=== PATIENT | male | born 1970 | race Caucasian/White ===

== ENCOUNTER 2020-08-01 13:18 | Outpatient (REF) | payer BC, SELFPAY ==
--- NOTE | 2020-08-01 16:00 | MHC.AU.P13 ---
Adult Audiological Evaluation Date of Visit: 08/01/20 Reason for Appointment: Audiological evaluation due to concern for decreased hearing. Patient notes that his feels he doesn't hear well. He denies any significant concerns for his hearing. 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 Does patient feel they have a hearing loss?: Unsure Has hearing been tested previously?: Yes Previous Hearing Test Results: Has had hearing screenings are work but does not know the results. 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 Medical History: Medical History: High Blood Pressure Medication List: Lisinopril 12.5 mg x2, Pravastatin 10 mg, Cetirizine 10 mg, Escitalopram 10 mg, One a day vitamin, vitamin C 500 mg Otoscopy: Right Ear: Unremarkable Left Ear: Unremarkable Hearing Evaluation: Transducer(s) Used: Insert Earphones, Bone Conduction Method: Conventional Audiometry Stimuli Used: Pure Tones Right Ear: Description of Hearing: Normal hearing from 250-2000 Hz, steeply sloping to a mild sensorineural hearing loss at 3000 Hz and a moderately severe sensorineural hearing loss at 4000 Hz, then rising to normal hearing at 3985-3114 Hz. Left Ear: Description of Hearing: Normal hearing from 250-8000 Hz. Speech Recognition Threshold (SRT): Method Used: Monitored Live Voice Stimuli Used: Spondee Words Right Ear: 10 dBHL Left Ear: 5 dBHL Word Discrimination: Method: Recorded Lists Word Lists Used: NU-6 Right Ear: 100% at 50 dBHL Left Ear: 100% at 50 dBHL Interpretation of Results: Notch at 4000 Hz in the right ear may be related to history of noise exposure. Recommendations: Audiological re-evaluation in one year. Amplification is not warranted at this time. Referral to Ear, Nose, and Throat is recommended due to asymmetric hearing, right worse than left. Diagnosis: Primary Diagnosis: H90.41 SNHL Unilateral Right Ear, W/Unrestricted Contralateral Hearing Services Performed: Services Performed: Comprehensive Audiological Evaluation (CPT 13295) Signature: Provider: Tushar Lal, [facility]
--- NOTE | 2020-08-05 09:53 | MHC.AU.P13 ---
Adult Audiological Evaluation Date of Visit: 08/01/20 Reason for Appointment: Audiological evaluation due to concern for decreased hearing. Patient notes that his feels he doesn't hear well. He denies any significant concerns for his hearing. 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 Does patient feel they have a hearing loss?: Unsure Has hearing been tested previously?: Yes Previous Hearing Test Results: Has had hearing screenings are work but does not know the results. 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 Medical History: Medical History: High Blood Pressure Medication List: Lisinopril 12.5 mg x2, Pravastatin 10 mg, Cetirizine 10 mg, Escitalopram 10 mg, One a day vitamin, vitamin C 500 mg Otoscopy: Right Ear: Unremarkable Left Ear: Unremarkable Hearing Evaluation: Transducer(s) Used: Insert Earphones, Bone Conduction Method: Conventional Audiometry Stimuli Used: Pure Tones Right Ear: Description of Hearing: Normal hearing from 250-2000 Hz, steeply sloping to a mild sensorineural hearing loss at 3000 Hz and a moderately severe sensorineural hearing loss at 4000 Hz, then rising to normal hearing at 0589-5853 Hz. Left Ear: Description of Hearing: Normal hearing from 250-8000 Hz. Speech Recognition Threshold (SRT): Method Used: Monitored Live Voice Stimuli Used: Spondee Words Right Ear: 10 dBHL Left Ear: 5 dBHL Word Discrimination: Method: Recorded Lists Word Lists Used: NU-6 Right Ear: 100% at 50 dBHL Left Ear: 100% at 50 dBHL Interpretation of Results: Notch at 4000 Hz in the right ear may be related to history of noise exposure. Recommendations: Audiological re-evaluation in one year. Amplification is not warranted at this time. Referral to Ear, Nose, and Throat is recommended due to asymmetric hearing, right worse than left. Diagnosis: Primary Diagnosis: H90.41 SNHL Unilateral Right Ear, W/Unrestricted Contralateral Hearing Services Performed: Services Performed: Comprehensive Audiological Evaluation (CPT 32257) Signature: Provider: Tushar Lal, [facility]
== END 2020-08-01 13:19 | disposition home or self-care (01) ==
LOC: HO.SH 13:18
PROVIDERS: Visit Provider Internal Medicine
DX: H90.41 Sensorineural hearing loss, unilateral, right ear, with unrestricted hearing on the contralateral side (principal)
CPT/HCPCS: 92557

== ENCOUNTER → 2020-10-16 13:41 | Outpatient (REF) | payer BC, SELFPAY | LOC: HO.SL 13:41 | PROVIDERS: PCP Internal Medicine; Visit Provider Internal Medicine | DX: E66.01 Morbid (severe) obesity due to excess calories (principal); Z68.41 Body mass index [BMI] 40.0-44.9, adult | CPT/HCPCS: 95806 ==

== ENCOUNTER 2021-01-03 07:03 | Outpatient (REF) | payer BC, SELFPAY ==
[2021-01-03 07:46] LABS: MANUAL DIFF FLAG NO
[2021-01-03 07:52] LABS: Basophils Percent Auto 0.6 % (0-2); Eosinophils Absolute Auto 0.1 X10*3/uL (0.0-0.4); Eosinophils Percent Auto 2.6 % (0-4); Hematocrit 43.6 % (42-52); Hemoglobin 14.3 g/dl (14.0-18.0); Imm Gran Abs Auto 0.01 X10*3/uL (0.00-0.03); Imm Gran Pct Auto 0.2 % (0.0-0.4); Lymphocytes Absolute Auto 1.6 X10*3/uL (1.2-4.9); Lymphocytes Percent Auto 32.5 % (20-40); Mean Corpuscular HGB Conc 32.8 g/dl (31.0-36.0); Mean Corpuscular Hemoglobin 30.4 pg (27.0-33.0); Mean Corpuscular Volume 92.6 fL (80-98); Mean Platelet Volume 10.3 fL (9.4-12.4); Monocytes Absolute Auto 0.4 X10*3/uL (0.1-1.2); Monocytes Percent Auto 7.5 % (2-11); Neutrophils Absolute Auto 2.8 X10*3/uL (2.0-8.3); Neutrophils Percent Auto 56.6 % (45-73); Platelet Count 242 X10*3/uL (160-400); Red Blood Count 4.71 X10*6/uL (4.60-5.80); Red Cell Distribution Width 13.2 % (11.0-16.0)
[2021-01-03 08:10] LABS: Alanine Aminotransferase 23 U/L (0-40); Alkaline Phosphatase 63 U/L (39-117); Anion Gap 13 (12-20); Aspartate Amino Transferase 25 U/L (5-37); Bilirubin Total 0.7 mg/dL (0.0-1.0); Blood Urea Nitrogen 10 mg/dL (9-16); Calcium 9.3 mg/dL (8.4-10.2); Carbon Dioxide 27 mmol/L (22-29); Chloride 103 mmol/L (96-108); Cholesterol 164 mg/dL; Estimated Glomerular Filt Rate > 60; Glucose Random 109 mg/dL (60-115); HDL Cholesterol 47 mg/dL; LDL Cholesterol Calculated 99 mg/dl; Sodium 139 mmol/L (135-145); Total Protein 6.9 g/dL (6.5-8.0); Triglycerides 91 mg/dL; Uric Acid 8.2 mg/dL (3.4-7.0)
[2021-01-03 08:15] LABS: Estimated Average Glucose 111 mg/dL; Hemoglobin A1c % 5.5 %
[2021-01-03 08:31] LABS: Free T4 (Free Thyroxine) 0.89 ng/dL (0.71-1.85); Prostate Specific Antigen Scr 1.02 ng/mL (<0.05-4.0); Thyroid Stimulating Hormone 1.08 uIU/mL (0.32-4.0)
[2021-01-05 10:30] LABS: Folate 14.3 ng/mL (> or = 4.0); Vitamin B12 439 pg/mL (200-900)
== END 2021-01-03 07:04 | disposition home or self-care (01) ==
LOC: HO.LAB 07:03
PROVIDERS: PCP Internal Medicine; Visit Provider Internal Medicine
DX: Z12.5 Encounter for screening for malignant neoplasm of prostate (principal); E78.00 Pure hypercholesterolemia, unspecified; I10 Essential (primary) hypertension; M10.9 Gout, unspecified; R73.02 Impaired glucose tolerance (oral)
CPT/HCPCS: 36415; 80053; 80061; 82607; 82746; 83036; 84153; 84439; 84443; 84550; 85025

== ENCOUNTER 2021-03-21 07:12 | Outpatient (REF) | payer BC, SELFPAY ==
[2021-03-21 08:16] LABS: Anion Gap 11 (12-20); Blood Urea Nitrogen 9 mg/dL (9-16); Calcium 9.1 mg/dL (8.4-10.2); Carbon Dioxide 28 mmol/L (22-29); Chloride 105 mmol/L (96-108); Estimated Glomerular Filt Rate > 60; Glucose Random 103 mg/dL (60-115); Potassium 4.3 mmol/L (3.3-5.1); Sodium 140 mmol/L (135-145); Uric Acid 5.9 mg/dL (3.4-7.0)
== END 2021-03-21 07:13 | disposition home or self-care (01) ==
LOC: HO.LAB 07:12
PROVIDERS: PCP Internal Medicine; Visit Provider Internal Medicine
DX: M10.9 Gout, unspecified (principal)
CPT/HCPCS: 36415; 80048; 84550

== ENCOUNTER 2022-02-20 07:16 | Outpatient (REF) | payer BC, SELFPAY ==
[2022-02-20 07:51] LABS: Hematocrit 43.4 % (42.0-52.0); Hemoglobin 14.6 g/dl (14.0-18.0); Mean Corpuscular HGB Conc 33.6 g/dl (31.0-36.0); Mean Corpuscular Hemoglobin 30.9 pg (27.0-33.0); Mean Corpuscular Volume 91.9 fL (80.0-98.0); Mean Platelet Volume 10.3 fL (9.4-12.4); Platelet Count 203 X10*3/uL (160-400); Red Blood Count 4.72 X10*6/uL (4.60-5.80); White Blood Count 4.2 X10*3/uL (4.8-10.8)
[2022-02-20 08:02] LABS: Estimated Average Glucose 105 mg/dL; Hemoglobin A1c % 5.3 %
[2022-02-20 08:39] LABS: Anion Gap 13 (12-20); Blood Urea Nitrogen 14 mg/dL (9-16); Calcium 8.9 mg/dL (8.4-10.2); Carbon Dioxide 25 mmol/L (22-29); Chloride 106 mmol/L (96-108); Estimated Glomerular Filt Rate > 60; Glucose Fasting 108 mg/dL (60-99); Potassium 4.1 mmol/L (3.3-5.1); Sodium 140 mmol/L (135-145)
== END 2022-02-20 07:17 | disposition home or self-care (01) ==
LOC: HO.LAB 07:16
PROVIDERS: PCP Internal Medicine; Referring Provider Internal Medicine; Visit Provider Nurse Practitioner Family
DX: E11.9 Type 2 diabetes mellitus without complications (principal); I10 Essential (primary) hypertension; Z13.1 Encounter for screening for diabetes mellitus
CPT/HCPCS: 36415; 80048; 83036; 85027

== ENCOUNTER 2022-03-22 15:51 | Outpatient (REF) | payer OTHER, BC, SELFPAY ==
--- NOTE | ~2022-03-22 | MR_ITS ---
EXAMINATION: MR KNEE WITHOUT CONTRAST, LEFT CLINICAL INFORMATION: Left knee pain following a hyperextension injury. Posterior burning pain. COMPARISON: None TECHNIQUE: MRI of the knee without contrast was performed using routine sequences on a high-field scanner. FINDINGS: MENISCI: Medial Meniscus: Intact. Lateral Meniscus: Attenuation and irregularity of the posterior horn and root, consistent with irregular tearing. LIGAMENTS: Cruciate: Intact. Collateral: Intact. EXTENSOR MECHANISM: Intact. ARTICULAR CARTILAGE/BONE: Patellofemoral Compartment: Mild patellar articular cartilage signal heterogeneity with small marginal osteophytes. Medial Compartment: Intact articular cartilage. Lateral Compartment: Intact articular cartilage. JOINT FLUID AND BURSAE: Small joint effusion with mild synovitis. MR/MR knee LT wo con IMPRESSION: 1. Irregular tearing of the lateral meniscus posterior horn and root. 2. Minimal patellofemoral arthrosis. 3. Small joint effusion with mild synovitis.
== END 2022-03-22 15:52 | disposition home or self-care (01) ==
LOC: HO.MRI 15:51
PROVIDERS: Visit Provider Internal Medicine
DX: M25.562 Pain in left knee (principal)
CPT/HCPCS: 73721

== ENCOUNTER 2022-03-30 | Outpatient (REF) | payer OTHER, BC, SELFPAY ==
--- NOTE | ~2022-03-30 | XR_ITS ---
EXAMINATION: XR STANDING AP KNEES XR KNEE, LEFT CLINICAL INFORMATION: Knee pain. Hyperextension injury. COMPARISON: MRI left knee 03/22/2022. TECHNIQUE: Standing AP view of both knees is performed along with lateral and axial patella views of the left knee. FINDINGS: Right: No fracture or destructive process. Normal bony mineralization. No joint narrowing or erosive change or chondrocalcinosis. Left: No fracture, dislocation, destructive process. No focal joint narrowing or erosive change or chondrocalcinosis. Normal bony mineralization. No lateralization patella. Small suprapatellar effusion. Hoffa's fat pad appears normal. XR/XR knee standing BI IMPRESSION: Right: -No joint narrowing or erosive change. Left: -No joint narrowing or erosive change. -Small suprapatellar effusion.
--- NOTE | ~2022-03-30 | XR_ITS ---
EXAMINATION: XR STANDING AP KNEES XR KNEE, LEFT CLINICAL INFORMATION: Knee pain. Hyperextension injury. COMPARISON: MRI left knee 03/22/2022. TECHNIQUE: Standing AP view of both knees is performed along with lateral and axial patella views of the left knee. FINDINGS: Right: No fracture or destructive process. Normal bony mineralization. No joint narrowing or erosive change or chondrocalcinosis. Left: No fracture, dislocation, destructive process. No focal joint narrowing or erosive change or chondrocalcinosis. Normal bony mineralization. No lateralization patella. Small suprapatellar effusion. Hoffa's fat pad appears normal. XR/XR knee LT 2V IMPRESSION: Right: -No joint narrowing or erosive change. Left: -No joint narrowing or erosive change. -Small suprapatellar effusion.
== END 2022-03-30 00:01 ==
LOC: HO.HOSX
PROVIDERS: Visit Provider Physician Assistant
DX: M25.562 Pain in left knee (principal); M23.92 Unspecified internal derangement of left knee
CPT/HCPCS: 73560; 73565; 99202

== ENCOUNTER → 2022-05-11 09:24 | Outpatient (BNVA) | payer OTHER, BC, SELFPAY | PROVIDERS: PCP Internal Medicine; Visit Provider Physician Assistant | DX: M23.92 Unspecified internal derangement of left knee (principal) | CPT/HCPCS: 99212 ==

== ENCOUNTER 2022-05-27 13:00 | Outpatient (RCR) | payer OTHER, BC, SELFPAY ==
[2022-04-15 09:06] VITALS: BP 144/85; PULSE 82
--- NOTE | 2022-04-15 10:24 | MHC.PT.EP ---
[facility] [place] [facility] [place] [facility] [place] Office [address] [phone] F: [phone] F: [phone] F: [phone] F: [phone] Physical Therapy Plan of Care Date of Evaluation: Date of Surgery: NA Diagnosis: Unspecified derangement of L knee Assessment: Zak is a 51 year old male who is referred to PT for unspecified internal derangement of L knee . He injured his knee at work about 6 weeks back. He slipped and fell while getting off his truck and landed on his knee with it flexed. He went to urgent care where he was given brace. He then followed up with his PCP and ortho. On PT examination he presented with 6/10 pain in L knee with sit to stand, stairs, getting in and out of car and knee bending, decreased L knee ROM, TTP over posterior joint line and distal 1/3rd of medial hamstring, decreased B LE strength, altered posture, and gait. Due to these impairments and he has difficulty with above mentioned activities. He would benefit from skilled PT to address the aforementioned impairments and improve tolerance to functional activities. Frequency and Duration: The patient will be seen 2/week for 5 weeks Short Term Goals: 1. Pt will have 50% decrease in pain which will enable him to tolerate sitting for 30 minutes in 2 weeks 2. 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 Pt will demonstrate an increase in muscle strength by 1 grade which will enable to perform sit to stand and negotiate stairs without pain in 5 weeks. 2. Pt will be independent with HEP for symptom management and maintenance following d/c in 5 weeks. Treatment Plan: Modalities to reduce pain, spasms and effusion. Manual therapy to restore motion and function. Therapeutic exercise to improve strength and flexibility. Neuromuscular re-education for posture and balance. Therapeutic activities to return to functional activities of daily living. Electronically signed by: Nilam Hopper PT DPT Please sign and return to therapist. Thank you for your referral.
--- NOTE | 2022-06-22 15:53 | MHC.PT.DC ---
[facility] [place] Office [place] Office [place] Office [address] [phone] F: [phone] F: [phone] F: [phone] F: [phone] Physical Therapy Discharge Report Diagnosis: Unspecified derangement of L knee Date of Surgery: NA Date of Evaluation: 04/15/22 Date of Discharge: 06/22/22 Treatments to Date: 9 Cancellations to Date: 0 No Shows to Date: Discharge Status: Achieved Goals Improved Function Independent with HEP Discharge Summary: Zak completed 9 PT visits. In these visits he made significant improvements and achieved all goals set for him. He has returned to work as well. He is therefore being d/c from PT. He was in agreement with the plan. Electronically signed by: Nilam Hopper, PT DPT Please sign and return to therapist. Thank you for your referral.
== END 2022-06-22 15:54 | disposition home or self-care (01) ==
LOC: HO.PT 13:00
PROVIDERS: PCP Internal Medicine; Visit Provider Physician Assistant
DX: M23.92 Unspecified internal derangement of left knee (principal)
CPT/HCPCS: 97035; 97110; 97140; 97161; 97530

== ENCOUNTER 2023-04-18 14:01 | Outpatient (AMB) | payer BC, SELFPAY ==
[2023-04-18 14:09] VITALS: BP 176/90; PULSE 80; O2SAT 96; BMI 43.3
--- NOTE | 2023-04-18 14:09 | MHC.PC.OV ---
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: No Accompanied by: Self / Same As Patient Allergies No Known Allergies [No Known Allergies*] Allergy (Verified 04/18/23 14:29) Medication List - Last Reconciled 04/18/23 by ALAN Tanner allopurinol 100 mg PO DAILY 30 days ascorbic acid (vitamin C) mg PO aspirin (Adult Aspirin Regimen) 81 mg PO DAILY cetirizine 10 mg PO DAILY colchicine (gout) 0.6 mg PO DAILY [CPAP 6-16 cm humidified air As directed] escitalopram oxalate 10 mg PO DAILY hydrochlorothiazide 25 mg PO DAILY 30 days lisinopril 40 mg PO DAILY 90 days [id number]-ginkgo 400-600-120 mcg-mcg-mg (One Daily For Men 50 Plus Adv) tabs PO pravastatin 10 mg PO DAILY Tobacco use date assessed: 04/18/23 Dental Screening Dental Screen Date: 04/18/23 Did you have a dental visit in the last 12 months?: Yes Did you have a dental problem in the last 6 months where you did not have access to dental care?: No Was dental information given to patient?: Patient has dentist HPI HPI Comments History of Present Illness Details 52-year-old male past medical history significant for hypertension, hypercholesteremia, impaired glucose tolerance obesity, MALDONADO and left knee pain. Patient last seen in May patient presents today for follow-up visit. Patient's initial blood pressure on arrival elevated 176/90, blood pressure, patient reports home blood pressure readings 132/70's.Patient Denies headaches, blurred vision. Patient reports under alot of stress. Blood pressure repeated during this appointment after patient was sitting for few minutes 144/82. Patient reminded to get previously ordered fasting lab work completed. [facility] Medical History Allergic rhinitis Anxiety Hypercholesterolemia Hypertension Impaired glucose tolerance Obesity Surgical History History of colonoscopy Family History Father Prostate cancer Heart attack Mother No problems noted. 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 1. Little interest or pleasure in doing things: not at all 2. Feeling down, depressed, or hopeless: not at all 3. Trouble falling or staying asleep, or sleeping too much: not at all 4. Feeling tired or having little energy: not at all 5. Poor appetite or overeating: not at all 6. Feeling bad about yourself - or that you are a failure or have let yourself or your family down: not at all 7. Trouble concentrating on things, such as reading the newspaper or watching television: not at all 8. Moving or speaking so slowly that other people could have noticed. Or the opposite - being so fidgety or restless that you have been moving around a lot more than usual: not at all 9. Thoughts that you would be better off or of hurting yourself in some way: not at all Total score: 0 Depression Screening Interpretation: Negative Depression Screening Done: Yes Source: Developed by Drs. Kelvin Telles, Apple Hadley, Lawson Smith and colleagues, with an educational penelope from [employer]. Thrive Questionnaire Date Thrive assessed: 04/18/23 I am a: Patient What is your living situation today?: I have a steady place to live Within the past 12 months, did the food you bought not last and you didn't have the money to get more?: Never true Within the past 12 months, did you worry whether your food would run out before you got money to buy more?: Never true Do you have trouble paying for medicines?: No Do you have trouble getting transportation to medical appointments?: No Do you have trouble paying your heating and electricity bill?: No Do you have trouble taking care of your child, family member or friend?: No Do you have trouble with day-to-day activities such as bathing, preparing meals, shopping, managing finances, etc.?: No Are you currently unemployed and looking for a job?: No Are you interested in more education?: No Please select the resources that you would like help with: None Currently or been in a relationship where the following occur: no concerns reported AUDIT C Alcohol Use Questionnaire (AUDIT-C) 1. How often do you have a drink containing alcohol?: Never Total Score: 0 JORDANA-7 AMB Questionnaire JORDANA-7 Date JORDANA - 7 assessed: 04/18/23 Feeling nervous, anxious, or on edge: 0 = Not at all Not being able to stop or control worryin = Not at all Worrying too much about different things: 0 = Not at all Trouble relaxin = Not at all Being so restless that it is hard to sit still: 0 = Not at all Becoming easily annoyed or irritable: 0 = Not at all Feeling afraid as if something awful might happen: 0 = Not at all Total JORDANA-7 score (0-4 normal; 5-9 mild; 10-14 moderate; 15-21 severe): 0 Source: Developed by Drs. Kelvin Telles, Apple Hadley, Lawson Smith and colleagues, with an educational penelope from [employer]. JORDANA-7 Assessment Billing JORDANA-7 Assessment Tool: JORDANA-7 Assessment 67585 Review of Systems Const Denies chills, Denies fatigue, Denies fever(s) and Denies poor appetite Eyes Denies no additional complaints ENT Reports Normal hearing present Card Denies chest pain, Denies syncope, Denies rapid heart rate and Denies dyspnea Resp Denies cough and Denies dyspnea GI Denies change in stool character, Denies constipation, Denies diarrhea, Denies nausea and Denies vomiting Denies dysuria, Denies urinary frequency and Denies urinary urgency Neuro Reports Normal hearing present, Denies confusion and Denies syncope Psych Denies confusion Endo Denies fatigue Physical exam (Primary Care) Vital Signs: Last Vital Signs Pulse 80 04/18/23 14:09 BP 176/90 H 04/18/23 14:09 Pulse Ox 96 04/18/23 14:09 Oxygen Delivery Method Room Air 04/18/23 14:09 BMI result Body Mass Index 43.3 Tobacco/Smoking Status: Tobacco use Status Tobacco use date assessed 04/18/23 04/18/23 14:15 Patient Tobacco Use Status Never used Tobacco 04/18/23 14:15 e-Cigarette/Vaping Use Never Used 04/18/23 14:15 PHQ-9: PHQ-9 Score PHQ-9: Total score 0 04/18/23 14:27 Depression Screening Interpretation: Negative Thrive Assessment: Date of Thrive Assessment Date Thrive assessed 04/18/23 04/18/23 14:15 Currently or been in a relationship where the following occur: no concerns reported Const General: No confusion Orientation/consciousness: No confusion HENMT Head: Yes normocephalic and Yes atraumatic Eyes Conjunctivae: conjunctivae normal Chest Chest palpation & inspection: normal inspection of the chest Resp Effort & Inspection: normal respiratory effort Auscultation: clear to auscultation bilaterally, no crackles, no rhonchi and no wheezes Cardio Rate: regular rate Rhythm: regular rhythm Heart sounds: S1 normal heart sound present and S2 normal heart sound present GI Inspection: Yes normal to inspection Neuro General: No confusion Cranial nerves: Yes Normal hearing present Extrem General: No edema Office Procedures Flu Questionnaire Does the patient have a severe egg allergy?: No Immunizations flu vacc [id number] 6mos up(PF) 60 mcg(15 mcgx4)/0.5 mL IM syringe Performing Provider: ALAN Tanner [facility] Documented (not given) by: ISABELLE Hernández on 04/18/23 14:17 Reason Not Given: Patient Refused Assessment and Plan Assessment & Plan (1) Impaired glucose tolerance: Code(s): R73.02 - Impaired glucose tolerance (oral) Plan: Fasting glucose ordered. (2) Hypercholesterolemia: Code(s): E78.00 - Pure hypercholesterolemia, unspecified Plan: Patient reminded to get previously ordered fasting lipid panel completed. Continue on pravastatin 10 mg daily. Avoid fried foods, chicken skin, eggs, butter,margarine, pastries and?? red meat. (3) Hypertension: Code(s): I10 - Essential (primary) hypertension Qualifiers: Hypertension type: essential hypertension Qualified Code(s): I10 - Essential (primary) hypertension Plan: Continue on lisinopril 40 mg daily and hydrochlorothiazide 25 mg daily. Follow low-salt diet and exercise. Patient advised to continue checking blood pressures periodically at home after sitting down for 3-5 minutes and keep a log patient advised to call office with any elevated blood pressure readings. Blood pressure goal less than 140/90. (4) Obstructive sleep apnea: Code(s): G47.33 - Obstructive sleep apnea (adult) (pediatric) Plan: Discussed about using the CPAP more than 4 hours a night and benefits from this. Plan Follow-up in 3 months. Orders: Orders Influenza [id number] Immunization 04/18/23 Z23 - Encounter for immunization Coding Level of Care Code Est Pt Level 4 (64628) Diagnoses Impaired glucose tolerance R73.02 Hypercholesterolemia E78.00 Essential hypertension I10 Hypertension type: essential hypertension Obstructive sleep apnea G47.33 Additional Codes JORDANA-7 Assessment Billing - JORDANA-7 Assessment Tool: JORDANA-7 Assessment 37403 ([id number]) PHQ-9 - 52635 - PHQ-9 Billing: ([id number])
== END 2023-04-18 14:35 | disposition home or self-care (01) ==
PROVIDERS: PCP Internal Medicine; Visit Provider Nurse Practitioner Family
DX: R73.02 Impaired glucose tolerance (oral) (principal); E78.00 Pure hypercholesterolemia, unspecified; I10 Essential (primary) hypertension; G47.33 Obstructive sleep apnea (adult) (pediatric)
CPT/HCPCS: 99214

== ENCOUNTER 2023-07-23 07:19 | Outpatient (REF) | payer BC, SELFPAY ==
[2023-07-23 07:38] LABS: MANUAL DIFF FLAG NO
[2023-07-23 07:55] LABS: Basophils Percent Auto 0.6 % (0-2); Eosinophils Absolute Auto 0.2 X10*3/uL (0.0-0.4); Eosinophils Percent Auto 3.5 % (0-4); Hematocrit 43.7 % (42.0-52.0); Hemoglobin 15.4 g/dl (14.0-18.0); Imm Gran Abs Auto 0.01 X10*3/uL (0.00-0.03); Imm Gran Pct Auto 0.2 % (0.0-0.4); Lymphocytes Absolute Auto 1.6 X10*3/uL (1.2-4.9); Lymphocytes Percent Auto 34.8 % (20-40); Mean Corpuscular HGB Conc 35.2 g/dl (31.0-36.0); Mean Corpuscular Volume 90.9 fL (80.0-98.0); Mean Platelet Volume 10.4 fL (9.4-12.4); Monocytes Absolute Auto 0.5 X10*3/uL (0.1-1.2); Monocytes Percent Auto 10.2 % (2-11); Neutrophils Absolute Auto 2.4 x10*3/uL (2.0-8.3); Neutrophils Percent Auto 50.7 % (45-73); Platelet Count 252 X10*3/uL (160-400); Red Blood Count 4.81 X10*6/uL (4.60-5.80); White Blood Count 4.6 X10*3/uL (4.8-10.8)
[2023-07-23 08:09] LABS: Estimated Average Glucose 108 mg/dL; Hemoglobin A1c % 5.4 % (<6.0)
[2023-07-23 09:31] LABS: Alanine Aminotransferase 47 U/L (0-40); Albumin Level 4.1 g/dL (3.5-5.0); Alkaline Phosphatase 63 U/L (39-117); Anion Gap 12 (12-20); Aspartate Amino Transferase 37 U/L (5-37); Bilirubin Total 0.6 mg/dL (0.0-1.0); Blood Urea Nitrogen 14 mg/dL (9-16); Calcium 9.4 mg/dL (8.4-10.2); Carbon Dioxide 27 mmol/L (22-29); Chloride 104 mmol/L (96-108); Cholesterol 142 mg/dL (<200); Estimated Glomerular Filt Rate > 60; Glucose Random 99 mg/dL (60-115); HDL Cholesterol 45 mg/dL (>40); LDL Cholesterol Calculated 86 mg/dL (<100); Sodium 139 mmol/L (135-145); Total Protein 7.2 g/dL (6.5-8.0); Triglycerides 56 mg/dL (<150); Uric Acid 6.7 mg/dL (3.4-7.0)
[2023-07-23 09:48] LABS: Free T4 (Free Thyroxine) 0.94 ng/dL (0.71-1.85); Thyroid Stimulating Hormone 1.63 uIU/mL (0.32-4.0)
[2023-07-23 10:01] LABS: Folate 10.5 ng/mL (> or = 4.0); Prostate Specific Antigen Scr 2.12 ng/mL (<0.05-4.0)
[2023-07-23 11:01] LABS: Vitamin B12 853 pg/mL (200-900)
== END 2023-07-23 07:20 | disposition home or self-care (01) ==
LOC: HO.LAB 07:19
PROVIDERS: PCP Internal Medicine; Visit Provider Internal Medicine
DX: Z12.5 Encounter for screening for malignant neoplasm of prostate (principal); E78.00 Pure hypercholesterolemia, unspecified; R73.02 Impaired glucose tolerance (oral)
CPT/HCPCS: 36415; 80053; 80061; 82607; 82746; 83036; 84153; 84439; 84443; 84550; 85025

== ENCOUNTER 2023-07-28 14:02 | Outpatient (AMB) | payer BC, SELFPAY ==
[2023-07-28 14:05] VITALS: BP 140/82; PULSE 72; O2SAT 98; BMI 43.4
--- NOTE | 2023-07-28 14:05 | A.OFFPC_ITS ---
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: No Allergies No Known Allergies [No Known Allergies*] Allergy (Verified 07/28/23 14:05) Medication List - Last Reconciled 07/28/23 by Kallie Atkinson MD allopurinol 100 mg PO DAILY 30 days ascorbic acid (vitamin C) mg PO aspirin (Adult Aspirin Regimen) 81 mg PO DAILY cetirizine 10 mg PO DAILY colchicine 0.6 mg PO DAILY [CPAP 6-16 cm humidified air As directed] escitalopram oxalate 10 mg PO DAILY hydrochlorothiazide 25 mg PO DAILY 30 days lisinopril 40 mg PO DAILY 90 days dp-urgu-lseij-lycopene-ginkgo 400-600-120 mcg-mcg-mg (One Daily For Men 50 Plus Adv) tabs PO pravastatin 10 mg PO DAILY Tobacco use date assessed: 07/28/23 Dental Screening Dental Screen Date: 07/28/23 Did you have a dental visit in the last 12 months?: Yes Did you have a dental problem in the last 6 months where you did not have access to dental care?: No Was dental information given to patient?: Patient has dentist HPI 3 month f/u HPI Details 53-year-old obese male with impaired glu cose tolerance hypercholesterolemia hypertension obstructive sleep apnea coming in for follow- up last seen in March 2023. BP at home with good SBP 130+ PFSH Medical History Allergic rhinitis Anxiety Hypercholesterolemia Hypertension Impaired glucose tolerance Obesity Surgical History History of colonoscopy Family History Father Prostate cancer Heart attack Mother No problems noted. 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 Current occupational exposures/hazards: No Cognitive needs: No Hearing needs: No Vision needs: Yes (reading glasses) Questionnaire Thrive Questionnaire Date Thrive assessed: 07/28/23 I am a: Patient What is your living situation today?: I have a steady place to live Within the past 12 months, did the food you bought not last and you didn't have the money to get more?: Never true Within the past 12 months, did you worry whether your food would run out before you got money to buy more?: Never true Do you have trouble paying for medicines?: No Do you have trouble getting transportation to medical appointments?: No Do you have trouble paying your heating and electricity bill?: No Do you have trouble taking care of your child, family member or friend?: No Do you have trouble with day-to-day activities such as bathing, preparing meals, shopping, managing finances, etc.?: No Are you currently unemployed and looking for a job?: No Are you interested in more education?: No Please select the resources that you would like help with: None THRIVE Score: 0 AUDIT C Alcohol Use Questionnaire (AUDIT-C) 1. How often do you have a drink containing alcohol?: Never 3. How often do you have six or more drinks on one occasion?: Never Total Score: 0 JORDANA-7 AMB Questionnaire JORDANA-7 Date JORDANA - 7 assessed: 07/28/23 Source: Developed by Drs. Kelvin Telles, Apple Hadley, Lawson Smith and colleagues, with an educational penelope from [employer]. Physical exam (Primary Care) Vital Signs: Last Vital Signs Pulse 72 07/28/23 14:05 BP 140/82 H 07/28/23 14:05 Pulse Ox 98 07/28/23 14:05 Oxygen Delivery Method Room Air 07/28/23 14:05 BMI result Body Mass Index 43.4 Tobacco/Smoking Status: Tobacco use Status Tobacco use date assessed 07/28/23 07/28/23 14:06 Patient Tobacco Use Status Never used Tobacco 07/28/23 14:06 e-Cigarette/Vaping Use Never Used 07/28/23 14:06 Thrive Assessment: Date of Thrive Assessment Date Thrive assessed 07/28/23 07/28/23 14:13 Const General: alert; No acute distress Eyes Conjunctivae: conjunctivae normal Resp Auscultation: clear to auscultation bilaterally Cardio Rate: regular rate Rhythm: regular rhythm GI Inspection: Yes normal to inspection Extrem General: Yes normal to inspection and No edema Assessment and Plan Assessment & Plan (1) LFT elevation: Code(s): R79.89 - Other specified abnormal findings of blood chemistry Plan: Will order for repeat testing as well as ultrasound of the abdomen (2) Obesity: Code(s): E66.9 - Obesity, unspecified Qualifiers: Obesity type: due to excess calories Obesity classification: adult class 3 (BMI >= 40) Serious obesity comorbidity presence: with serious comorbidity Body mass index: BMI 40.0-44.9 Qualified Code(s): E66.01 - Morbid (severe) obesity due to excess calories; Z68.41 - Body mass index [BMI]40.0- 44.9, adult Plan: Diet and exercise (3) Impaired glucose tolerance: Code(s): R73.02 - Impaired glucose tolerance (oral) Plan: Decrease the amount of carbohydrate intake, pasta, bread, rice and potatoes are all sugar and that is aside from all the sweet stuff, remember that fruits are good but they are Sweet also. (4) Hypercholesterolemia: Code(s): E78.00 - Pure hypercholesterolemia, unspecified Plan: Avoid fried foods, chicken skin, eggs, butter margarine, pastries and meat. Be it pork or beef they have a lot of cholesterol LDL goal of less than 130 and triglyceride of less than 150. Patient on pravastatin 10 mg once a day (5) Hypertension: Code(s): I10 - Essential (primary) hypertension Qualifiers: Hypertension type: essential hypertension Qualified Code(s): I10 - Essential (primary) hypertension Plan: Continue with blood pressure medication. Decrease salt intake and exercise presently on lisinopril 40 mg once a day hydrochlorothiazide 25 mg once a day (6) Obstructive sleep apnea: Code(s): G47.33 - Obstructive sleep apnea (adult) (pediatric) Plan: Continue to use the CPAP more than 4 hours a night and benefits from this. (7) Gout: Code(s): M10.9 - Gout, unspecified Qualifiers: Gout site: unspecified site Encounter type: subsequent encounter Chronicity: chronic Presence of tophus: without tophus Plan: Low purine diet and keep well hydrated (8) Generalized anxiety disorder: Code(s): F41.1 - Generalized anxiety disorder Plan: Continue with present medication Coding Level of Care Code Est Pt Level 4 (43081) Diagnoses LFT elevation R79.89 Class 3 severe obesity due to excess calories with serious comorbidity and body mass index (BMI) of 40.0 to 44.9 in adult E66.01; Z68.41 Obesity type: due to excess calories Obesity classification: adult class 3 (BMI >= 40) Serious obesity comorbidity presence: with serious comorbidity Body mass index: BMI 40.0-44.9 Impaired glucose tolerance R73.02 Hypercholesterolemia E78.00 Essential hypertension I10 Hypertension type: essential hypertension Obstructive sleep apnea G47.33 Gout M10.9 Gout site: unspecified site Encounter type: subsequent encounter Chronicity: chronic Presence of tophus: without tophus Generalized anxiety disorder F41.1
== END 2023-07-28 14:50 | disposition home or self-care (01) ==
PROVIDERS: PCP Internal Medicine; Visit Provider Internal Medicine
DX: R79.89 Other specified abnormal findings of blood chemistry (principal); E66.01 Morbid (severe) obesity due to excess calories; Z68.41 Body mass index [BMI] 40.0-44.9, adult; R73.02 Impaired glucose tolerance (oral); E78.00 Pure hypercholesterolemia, unspecified; I10 Essential (primary) hypertension; G47.33 Obstructive sleep apnea (adult) (pediatric); M10.9 Gout, unspecified; F41.1 Generalized anxiety disorder
CPT/HCPCS: 99214

== ENCOUNTER 2023-08-12 08:10 | Outpatient (REF) | payer BC, SELFPAY ==
--- NOTE | ~2023-08-12 | US_ITS ---
EXAMINATION: US ABDOMEN COMPLETE CLINICAL INFORMATION: Other specified abnormal findings of blood chemistry. COMPARISON: None available. TECHNIQUE: Real-time imaging of the abdominal viscera. Limited visualization due to bowel gas and body habitus. FINDINGS: PANCREAS: Poorly visualized. ABDOMINAL AORTA: Poorly visualized. INFERIOR VENA CAVA: Visualized portions are normal. LIVER: Increased hepatic parenchymal heterogeneity and echogenicity could be associated with hepatocellular disease/hepatic steatosis and severely limits visualization. Correlation with liver function tests and clinical exam recommended to determine further management. GALLBLADDER: No gallstones. Limited visualization. COMMON BILE DUCT: Normal in caliber measuring 0.36 cm in diameter. RIGHT KIDNEY: No hydronephrosis. No renal calculi. Limited visualization. The kidney measures 11.82 cm in maximum dimension. LEFT KIDNEY: No hydronephrosis. No renal calculi. Limited visualization. The kidney measures 11.07 cm in maximum dimension. SPLEEN: Normal. The spleen measures 11.6 cm in maximum dimension. FREE FLUID: None. US/US abdomen complete IMPRESSION: Increased hepatic parenchymal heterogeneity and echogenicity could be associated with hepatocellular disease/hepatic steatosis and severely limits visualization. Correlation with liver function tests and clinical exam recommended to determine further management.
== END 2023-08-12 08:11 | disposition home or self-care (01) ==
LOC: HO.US 08:10
PROVIDERS: Visit Provider Internal Medicine
DX: R79.89 Other specified abnormal findings of blood chemistry (principal)
CPT/HCPCS: 76700

== ENCOUNTER 2023-12-30 17:40 | Outpatient (AMB) | payer BC, SELFPAY ==
--- NOTE | 2023-12-30 17:41 | MHC.PC.OV ---
Intake Visit Reasons: Poison Malia Allergies No Known Allergies [No Known Allergies*] Allergy (Verified 12/30/23 17:42) Tobacco use date assessed: 07/28/23 Dental Screening Dental Screen Date: 07/28/23 HPI Poison Malia HPI Details 53-year-old morbidly obese male with impaired glucose tolerance hypercholesterolemia hypertension obstructive sleep apnea and generalized anxiety disorder calling in for an acute problem. rash noted 4 days doing lawn care blister on wrist right , lower back taking zyrtec. [facility] Medical History Allergic rhinitis Anxiety Hypercholesterolemia Hypertension Impaired glucose tolerance Obesity Surgical History History of colonoscopy Family History Father Prostate cancer Heart attack Mother No problems noted. 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 1. Little interest or pleasure in doing things: not at all 2. Feeling down, depressed, or hopeless: not at all 3. Trouble falling or staying asleep, or sleeping too much: not at all 4. Feeling tired or having little energy: not at all 5. Poor appetite or overeating: not at all 6. Feeling bad about yourself - or that you are a failure or have let yourself or your family down: not at all 7. Trouble concentrating on things, such as reading the newspaper or watching television: not at all 8. Moving or speaking so slowly that other people could have noticed. Or the opposite - being so fidgety or restless that you have been moving around a lot more than usual: not at all 9. Thoughts that you would be better off or of hurting yourself in some way: not at all Total score: 0 Depression Screening Interpretation: Negative Depression Screening Done: Yes Source: Developed by Drs. Kelvin Telles, Lawson Gilbert and colleagues, with an educational penelope from [employer]. Thrive Questionnaire Date Thrive assessed: 07/28/23 AUDIT C Alcohol Use Questionnaire (AUDIT-C) 1. How often do you have a drink containing alcohol?: Never 3. How often do you have six or more drinks on one occasion?: Never Total Score: 0 JORDANA-7 AMB Questionnaire JORDANA-7 Date JORDANA - 7 assessed: 07/28/23 Source: Developed by Apple Limon Kurt Kroenke and colleagues, with an educational penelope from [employer]. Physical exam (Primary Care) Tobacco/Smoking Status: Tobacco use Status Tobacco use date assessed 07/28/23 12/30/23 17:43 Patient Tobacco Use Status Never used Tobacco 12/30/23 17:43 e-Cigarette/Vaping Use Never Used 12/30/23 17:43 PHQ-9: PHQ-9 Score PHQ-9: Total score 0 12/30/23 17:43 Depression Screening Interpretation: Negative Thrive Assessment: Date of Thrive Assessment Date Thrive assessed 07/28/23 12/30/23 17:43 Telehealth Telehealth Location of provider rendering services: practice address Location of patient: address on file Patient Identification confirmed using: Name, : Yes Telehealth method: video (Android) Patient verbally consented to treatment: Yes Patient verbally consented to billing insurance company: Yes Patient informed of any privacy concerns related to visit: Yes Minutes spent on Phone/Video with Pt.: 15 Assessment and Plan Assessment & Plan (1) Allergic contact dermatitis: Code(s): L23.9 - Allergic contact dermatitis, unspecified cause Plan: Patient has been taken Zyrtec already and so will send in prednisone discussed on taking the medication with food and monitor diet as the blood sugars will get high. Keep well hydrated Medications: New prednisone 4 tabs QD x 2 days then 3 tabs QD x 2 days then 2 tabs Qd x 2 days then 1 tab QD x 2 days PO daily; 20 tabs 0RF J45.909 - Unspecified asthma, uncomplicated, L23.9 - Allergic contact dermatitis, unspecified cause Coding Level of Care Code Tele Est Pt Level 3 (04975) Diagnoses Allergic contact dermatitis L23.9 Additional Codes PHQ-9 - 20389 - PHQ-9 Billing: ([id number])
== END 2024-01-02 10:07 | disposition home or self-care (01) ==
LOC: HO.HMGH 17:40
PROVIDERS: PCP Internal Medicine; Visit Provider Internal Medicine
DX: L23.9 Allergic contact dermatitis, unspecified cause (principal)
CPT/HCPCS: 99213

== ENCOUNTER 2024-05-12 07:32 | Outpatient (REF) | payer BC, SELFPAY ==
[2024-05-12 09:19] LABS: Alanine Aminotransferase 37 U/L (0-40); Alkaline Phosphatase 65 U/L (39-117); Aspartate Amino Transferase 36 U/L (5-37); Bilirubin Direct 0.2 mg/dL (0.0-0.5); Bilirubin Total 0.6 mg/dL (0.0-1.0)
[2024-05-12 09:20] LABS: HBc Num1 0.06 S/CO (0.00-0.79); HBsAGNum1 0.39 S/CO (0.00-0.99); Hepatitis B Core Antibody Nonreactive (Nonreactive); Hepatitis B Surface Antigen Negative (Negative); ~HepC Num1 0.11 S/CO (0.00-0.79); ~Hepatitis B Surface Antibody NONREACTIVE (Nonreactive); ~Hepatitis C Antibody Nonreactive (Nonreactive)
[2024-05-12 09:38] LABS: Gamma Glutamyl Transpeptidase 29 U/L (11-51)
== END 2024-05-12 07:33 | disposition home or self-care (01) ==
LOC: HO.LAB 07:32
PROVIDERS: PCP Internal Medicine; Visit Provider Internal Medicine
DX: R79.89 Other specified abnormal findings of blood chemistry (principal)
CPT/HCPCS: 36415; 80076; 82977; 86704; 86706; 86803; 87340

== ENCOUNTER 2024-10-18 15:55 | Outpatient (AMB) | payer BC, SELFPAY ==
[2024-10-18 16:01] VITALS: BP 128/90; PULSE 71; O2SAT 98; BMI 42.9
--- NOTE | 2024-10-18 16:02 | A.OFFPC_ITS ---
Vital Signs 10/18/24 16:01 10/18/24 16:30 Height 6 ft 1 in Weight 325 lb 4 oz BMI 42.9 BP 128/90 H 136/82 Blood Pressure Location Lt brachial Lt brachial Position Sitting Sitting Pulse 71 Pulse Source Pulse Oximeter Pulse Oximetry (%) 98 Oxygen Delivery Method Room Air Intake Visit Reasons: Hypertension Research Test Engine Evaluator Required: No Accompanied by: Self / Same As Patient Allergies No Known Allergies [No Known Allergies*] Allergy (Verified 10/18/24 16:02) Medication List - Last Reconciled 10/18/24 by Heydi Chowdary PA-C allopurinol 100 mg PO DAILY ascorbic acid (vitamin C) mg PO aspirin (Adult Aspirin Regimen) 81 mg PO DAILY cetirizine 10 mg PO DAILY colchicine 0.6 mg PO DAILY [CPAP 6-16 cm humidified air As directed] escitalopram oxalate 10 mg PO DAILY hydrochlorothiazide 25 mg PO DAILY lisinopril 40 mg PO DAILY 90 days hf-smll-lftso-lycopene-ginkgo 400-600-120 mcg-mcg-mg (One Daily For Men 50 Plus Adv) tabs PO pravastatin 10 mg PO DAILY prednisone 4 tabs QD x 2 days then 3 tabs QD x 2 days then 2 tabs Qd x 2 days then 1 tab QD x 2 days PO daily; Tobacco use date assessed: 10/18/24 Dental Screening Dental Screen Date: 10/18/24 Did you have a dental visit in the last 12 months?: Yes Did you have a dental problem in the last 6 months where you did not have access to dental care?: No Was dental information given to patient?: Patient has dentist HPI Hypertension HPI Details 54-year-old male with past medical histo ry of hypertension, hypercholesterolemia, impaired glucose tolerance, obesity, gout, obstructive sleep apnea and generalized anxiety disorder last seen 12/2023 coming in for follow up.? Presenting for hypertension management. He reports home blood pressures ranging in the 130s/80s. He is adherent to daily doses of hydrochlorothiazide and lisinopril. Labs in April showed normal liver function and negative hepatitis panel, with past hyperlipidemia well-controlled. He is following up due to required medication renewal and reports an absence of symptoms such as chest pain or shortness of breath. 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 PFSH Medical History Allergic rhinitis Obesity Impaired glucose tolerance Hypercholesterolemia Hypertension Anxiety Surgical History History of colonoscopy Family History Father Prostate cancer Heart attack Mother No problems noted. 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 1. Little interest or pleasure in doing things: not at all 2. Feeling down, depressed, or hopeless: not at all 3. Trouble falling or staying asleep, or sleeping too much: not at all 4. Feeling tired or having little energy: not at all 5. Poor appetite or overeating: not at all 6. Feeling bad about yourself - or that you are a failure or have let yourself or your family down: not at all 7. Trouble concentrating on things, such as reading the newspaper or watching television: not at all 8. Moving or speaking so slowly that other people could have noticed. Or the opposite - being so fidgety or restless that you have been moving around a lot more than usual: not at all 9. Thoughts that you would be better off or of hurting yourself in some way: not at all Total score: 0 Source: Developed by Drs. Kelvin Telles, Apple Hadley, Lawson Smith and colleagues, with an educational penelope from [employer]. Thrive Questionnaire Date Thrive assessed: 10/18/24 I am a: Patient What is your living situation today?: I have a steady place to live Within the past 12 months, did the food you bought not last and you didn't have the money to get more?: Never true Within the past 12 months, did you worry whether your food would run out before you got money to buy more?: Never true Do you have trouble paying for medicines?: No Do you have trouble getting transportation to medical appointments?: No Do you have trouble paying your heating and electricity bill?: I choose not to answer this question Do you have trouble taking care of your child, family member or friend?: I choose not to answer this question Do you have trouble with day-to-day activities such as bathing, preparing meals, shopping, managing finances, etc.?: No Are you currently unemployed and looking for a job?: No Are you interested in more education?: No Please select the resources that you would like help with: None Currently or been in a relationship where the following occur: No concerns reported THRIVE Score: 0 AUDIT C Alcohol Use Questionnaire (AUDIT-C) 1. How often do you have a drink containing alcohol?: Monthly or less 2. How many drinks containing alcohol do you have on a typical day when you are drinking?: 1 or 2 3. How often do you have six or more drinks on one occasion?: Never Total Score: 1 JORDANA-7 AMB Questionnaire JORDANA-7 Date JORDANA - 7 assessed: 10/18/24 Feeling nervous, anxious, or on edge: 0 = Not at all Not being able to stop or control worryin = Not at all Worrying too much about different things: 1 = Several days Trouble relaxin = Not at all Being so restless that it is hard to sit still: 0 = Not at all Becoming easily annoyed or irritable: 0 = Not at all Feeling afraid as if something awful might happen: 0 = Not at all Total JORDANA-7 score (0-4 normal; 5-9 mild; 10-14 moderate; 15-21 severe): 1 Source: Developed by Drs. Kelvin Telles, Apple Hadley, Lawson Smith and colleagues, with an educational penelope from [employer]. Review of Systems Const Denies body aches, Denies chills, Denies fever(s), Denies headache(s) and Denies poor appetite Eyes Reports no additional complaints ENT Denies dizziness and Denies headache(s) Card Denies chest pain, Denies syncope, Denies edema, Denies irregular heart rhythm, Denies lightheadedness and Denies dyspnea Resp Denies dyspnea GI Denies abdominal pain, Denies nausea and Denies vomiting Reports no additional complaints Musc Reports no additional complaints and Denies abnormal gait Skin/Breast Reports system reviewed and no additional complaints, except as documented Neuro Denies abnormal gait, Denies dizziness, Denies syncope and Denies headache(s) Psych Reports no additional complaints Physical exam (Primary Care) Vital Signs: Last Vital Signs Pulse 71 10/18/24 16:01 BP 128/90 H 10/18/24 16:01 Pulse Ox 98 10/18/24 16:01 Oxygen Delivery Method Room Air 10/18/24 16:01 BMI result Body Mass Index 42.9 Tobacco/Smoking Status: Tobacco use Status Tobacco use date assessed 10/18/24 10/18/24 16:10 Patient Tobacco Use Status Never used Tobacco 10/18/24 16:10 e-Cigarette/Vaping Use Never Used 10/18/24 16:10 PHQ-9: PHQ-9 Score PHQ-9: Total score 0 10/18/24 16:10 Thrive Assessment: Date of Thrive Assessment Date Thrive assessed 10/18/24 10/18/24 16:10 Currently or been in a relationship where the following occur: No concerns reported Const General: cooperative, healthy appearing, comfortable and no acute distress Orientation/consciousness: patient oriented x3 HENMT Head: Yes normocephalic Ears: hearing grossly normal bilaterally General nose exam: Normal external nose present Eyes General: appearance normal, both eyes and all related structures Conjunctivae: conjunctivae normal Neck Neck: Yes full ROM and Yes no lymphadenopathy Resp Effort & Inspection: normal respiratory effort Auscultation: clear to auscultation bilaterally, no crackles, no rales, no rhonchi and no wheezes Cardio Rate: regular rate Rhythm: regular rhythm Skin General skin exam: no rashes or lesions noted Neuro General: patient oriented x3 Gait exam (Neuro): Normal gait present Extrem General: Yes normal to inspection, Yes full ROM and No edema Psych Affect: normal affect Attitude: cooperative Insight: Good insight present (Psych) Judgement: Good judgement present (Psych) Coding Level of Care Code Est Pt Level 3 (36078) Diagnoses Fatty liver K76.0 Obstructive sleep apnea G47.33 Class 3 severe obesity due to excess calories with serious comorbidity and body mass index (BMI) of 40.0 to 44.9 in adult E66.01; Z68.41 Obesity type: due to excess calories Obesity classification: adult class 3 (BMI >= 40) Serious obesity comorbidity presence: with serious comorbidity Body mass index: BMI 40.0-44.9 Impaired glucose tolerance R73.02 Hypercholesterolemia E78.00 Essential hypertension I10 Hypertension type: essential hypertension Assessment & Plan Assessment & Plan (1) Fatty liver: Code(s): K76.0 - Fatty (change of) liver, not elsewhere classified Category: Medical Plan: Healthy diet and regular exercise is encouraged. (2) Obstructive sleep apnea: Code(s): G47.33 - Obstructive sleep apnea (adult) (pediatric) Category: Medical Plan: Uses CPAP faithfully at least 4 hours a night and benefits from this therapy. (3) Obesity: Code(s): E66.9 - Obesity, unspecified Category: Medical Qualifiers: Obesity type: due to excess calories Obesity classification: adult class 3 (BMI >= 40) Serious obesity comorbidity presence: with serious comorbidity Body mass index: BMI 40.0-44.9 Qualified Code(s): E66.01 - Morbid (severe) obesity due to excess calories; Z68.41 - Body mass index [BMI]40.0- 44.9, adult Plan: Healthy diet and regular exercise is encouraged. (4) Impaired glucose tolerance: Code(s): R73.02 - Impaired glucose tolerance (oral) Category: Medical Plan: Decrease the amount of carbohydrates such as pasta, bread, rice, and potatoes and limit the amount of sweets. Although fruits are generally healthy they should be eaten in moderation as they are still high in sugar. Hemoglobin A1c goal of less than 7%. Ordered for repeat A1c to be done with yearly blood work (5) Hypercholesterolemia: Code(s): E78.00 - Pure hypercholesterolemia, unspecified Category: Medical Plan: Avoid foods that are high in cholesterol such as red meat, fried foods, eggs and baked goods. Triglyceride goal of less than 150 and LDL goal of less than 130. Continue on pravastatin. Ordered for updated blood work (6) Hypertension: Code(s): I10 - Essential (primary) hypertension Category: Medical Qualifiers: Hypertension type: essential hypertension Qualified Code(s): I10 - Essential (primary) hypertension Plan: Continue on current blood pressure medication. Avoid salt intake and encourage healthy diet and regular exercise. Patient is currently on the max dose of hydrochlorothiazide and lisinopril. He does take his blood pressure at home in the 130/80 range. Plan to continue on current medication regimen at this time and follow up in 4 months for annual exam Plan The patient's current management for essential hypertension with hydrochlorothiazide and lisinopril will continue as recent home readings have been adequately controlled. I have ordered updated laboratory testing for cholesterol and fasting glucose ahead of the forthcoming consult. Emphasis on lifestyle modification, with particular focus on dietary sodium reduction and stress management, will continue. Due to the patient's family history, routine prostate cancer screening will be maintained. I advise maintaining CPAP therapy adherence for obstructive sleep apnea. Follow-up is scheduled for in four months, allowing flexibility per patient's occupational commitments. This note was constructed using voice recognition software. While every effort has been made to ensure accuracy and extended day teacher, still areas may have been included sometimes these areas may affect the content or meeting of the given symptoms. Total time spent caring for the patient today was 20 minutes. This includes time spent before the visit reviewing the chart, time spent during the visit, and time spent after the visit and documentation. Patient was informed and verbally consented to the use of an ambient scribe for clinic note documentation during this visit. Orders: Orders Complete Blood Count Auto Diff Today Z00.00 - Encounter for general adult medical examination without abnormal findings Lipid Panel Today E78.00 - Pure hypercholesterolemia, unspecified Free T4 (Free Thyroxine) Today Z00.00 - Encounter for general adult medical examination without abnormal findings Vitamin B12 and Folate Today Z00.00 - Encounter for general adult medical examination without abnormal findings Vitamin D 25-OH Total Today Z00.00 - Encounter for general adult medical examination without abnormal findings Comprehensive Met. Panel Today Z00.00 - Encounter for general adult medical examination without abnormal findings TSH reflex Free T4 Today Z00.00 - Encounter for general adult medical examination without abnormal findings Hemoglobin A1c Today R73.02 - Impaired glucose tolerance (oral) Medications: Refilled hydrochlorothiazide 25 mg PO DAILY 90 tabs 2RF I10 - Essential (primary) hypertension
[2024-10-18 16:30] VITALS: BP 136/82
== END 2024-10-18 16:39 | disposition home or self-care (01) ==
LOC: HO.HMCH 15:56
PROVIDERS: PCP Internal Medicine
DX: K76.0 Fatty (change of) liver, not elsewhere classified (principal); G47.33 Obstructive sleep apnea (adult) (pediatric); E66.01 Morbid (severe) obesity due to excess calories; Z68.41 Body mass index [BMI] 40.0-44.9, adult; R73.02 Impaired glucose tolerance (oral); E78.00 Pure hypercholesterolemia, unspecified; I10 Essential (primary) hypertension

== ENCOUNTER → 2024-10-18 15:55 | Outpatient (BNVA) | payer BC, SELFPAY | PROVIDERS: PCP Internal Medicine ==

== ENCOUNTER 2025-05-11 07:02 | Outpatient (REF) | payer BC, SELFPAY ==
--- OUTSIDE RECORDS SUMMARY | 2025-05-11 07:04 | XMS_ITS | Patient Health Record ---
Author Organization [facility] Address [address] [place] [address] Care Team Providers Care Mutuel Teller Name Role Phone Kallie Atkinson MD Primary Care Provider Kelvin Mayberry [phone] Reason For Referral No Information Medications Medication SIG (Take, Route, Frequency, Duration) Notes Start Date End Date Status Baby Aspirin 81 mg 1 tablet orally once a day Active Lisinopril Active Lexapro Active hydroCHLOROthiazide Active Cetirizine HCl Activ e Multivitamin Adults - Tablet as directed Orally Active Vitamin C 500 MG Capsule as directed Orally Active Immunizations Vaccine Route Administration Date Status Comme nts Influenza Unknown 04/13/2019 Refused Social History Tobacco Use: Social History Observation Description Date Details (start date - stop date) Never Smoker NA - NA Social History Drugs/Alcohol: Social Info Question Answer Notes Alcohol Screen Did you have a drink containing alcohol in the past year? 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 Section Notes: Nonsmoker; no sig alcohol Problems Problem Type SNOMED Code ICD Code Onset Dates Problem Status W/U Status Risk Notes Problem Screening for malignant neoplasm of colon (641089864) Encounter for screening for malignant neoplasm of colon (Z12.11) Active confirmed Problem Pre-procedure evaluation check (575396454) Pre-procedural examination (Z01.818) Active confirmed Plan Of Treatment Future Test Test Name Order Date COLONOSCOPY 04/13/2019 Insurance Providers Payer Name Payer Address Payer Phone Subscriber Number Group Number Insured Name Patient Relationship to Insured Coverage Start Date Coverage End Date [facility]UE [facility] [address] [place], [place] [id number] ANGELICA MAYERS Self - patient is the insured Medical (General) History Medical History History ICD Code Gout Hypertension Denies [place],DM,CVA,Lung disease,renal dise ase Anxiety Hyperlipidemia Surgical History Surgery Date(Month/Year)
[2025-05-11 07:29] LABS: MANUAL DIFF FLAG NO
[2025-05-11 07:54] LABS: Hematocrit 43.4 % (42.0-52.0); Hemoglobin 14.4 g/dl (14.0-18.0); Imm Gran Abs Auto 0.01 X10*3/uL (0.00-0.03); Imm Gran Pct Auto 0.2 % (0.0-0.4); Lymphocytes Absolute Auto 1.5 X10*3/uL (1.2-4.9); Mean Corpuscular HGB Conc 33.2 g/dl (31.0-36.0); Mean Corpuscular Hemoglobin 30.6 pg (27.0-33.0); Mean Corpuscular Volume 92.3 fL (80.0-98.0); NRBC Abs Auto 0.000 X10*3/uL (0.0-0.012); NRBC Pct Auto 0.0 /100WBC (0.0-0.2); Platelet Count 228 X10*3/uL (160-400); Red Blood Count 4.70 X10*6/uL (4.60-5.80); White Blood Count 5.0 X10*3/uL (4.8-10.8)
[2025-05-11 08:19] LABS: Alanine Aminotransferase 38 U/L (0-40); Albumin Level 4.2 g/dL (3.5-5.0); Alkaline Phosphatase 68 U/L (39-117); Anion Gap 12 (12-20); Aspartate Amino Transferase 40 U/L (5-37); Blood Urea Nitrogen 15 mg/dL (9-16); Calcium 9.1 mg/dL (8.4-10.2); Carbon Dioxide 29 mmol/L (22-29); Chloride 104 mmol/L (96-108); Cholesterol 157 mg/dL (<200); Estimated Glomerular Filt Rate > 60; HDL Cholesterol 45 mg/dL (>40); Potassium 4.1 mmol/L (3.3-5.1); Sodium 141 mmol/L (135-145); Total Protein 7.0 g/dL (6.5-8.0); Triglycerides 61 mg/dL (<150)
[2025-05-11 09:13] LABS: Free T4 (Free Thyroxine) 0.89 ng/dL (0.71-1.85)
[2025-05-11 09:24] LABS: Folate 10.9 ng/mL (> or = 4.0); Vitamin B12 446 pg/mL (200-900)
[2025-05-16 08:29] LABS: PSA, Ultra Sensitive 1.95 ng/mL
== END 2025-05-11 07:03 | disposition home or self-care (01) ==
LOC: HO.LAB 07:02
PROVIDERS: PCP Internal Medicine
DX: Z00.00 Encounter for general adult medical examination without abnormal findings (principal); R73.02 Impaired glucose tolerance (oral); E78.00 Pure hypercholesterolemia, unspecified; Z12.5 Encounter for screening for malignant neoplasm of prostate
CPT/HCPCS: 36415; 80053; 80061; 82306; 82607; 82746; 83036; 84153; 84439; 84443; 85025

== ENCOUNTER 2025-05-31 13:39 | Outpatient (AMB) | payer BC, SELFPAY ==
[2025-05-31 13:46] VITALS: BP 136/84; PULSE 70; TEMP 36.2; O2SAT 97; BMI 43.3
--- NOTE | 2025-05-31 13:46 | A.OFFPC_ITS ---
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 Required: No Accompanied by: Self / Same As Patient Allergies No Known Allergies (No Known Allergies*) Allergy (Verified 05/31/25 13:46) Medication List - Last Reconciled 05/31/25 by Alda Santiago MD allopurinol 100 mg PO DAILY aspirin (Adult Aspirin Regimen) 81 mg PO DAILY cetirizine 10 mg PO DAILY colchicine 0.6 mg PO DAILY [CPAP 6-16 cm humidified air As directed] escitalopram oxalate 10 mg PO DAILY hydrochlorothiazide 25 mg PO DAILY lisinopril 40 mg PO DAILY 90 days [id number]-umxhw-lycopene-ginkgo 400-600-120 mcg-mcg-mg (One Daily For Men 50 Plus Adv) tabs PO pravastatin 10 mg PO DAILY Tobacco use date assessed: 05/31/25 Dental Screening Dental Screen Date: 05/31/25 Did you have a dental visit in the last 12 months?: Yes Did you have a dental problem in the last 6 months where you did not have access to dental care?: No HPI HPI Comments History of Present Illness Details Patient is a 54-year-old male with impaired glucose intolerance, hypercholesterolemia, hypertension, MALDONADO, and generalized anxiety disorder who presents for annual physical. Patient has no new concerns today. Recent lab work from April showed a mild elevation in his AST to 40 U/L (normal <37). A liver ultrasound in July 2023 revealed hepatic steatosis. Other labs, including CBC, chemistry panel, A1c (5.5), thyroid, and vitamin D levels, were within normal limits. He tries to eat healthy, avoids unhealthy fats, and goes to the gym when he has time off. Healthcare maintenance: He reports he had a colonoscopy at age 50, which was normal with no polyps found, and was advised to repeat it in 10 years. Tdap 2017 Declines flu vaccine Due for Shingles vaccine PFSH Medical History Allergic rhinitis Obesity Impaired glucose tolerance Hypercholesterolemia Hypertension Anxiety Surgical History History of colonoscopy Family History Father Prostate cancer Heart attack Mother No problems noted. 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 1. Little interest or pleasure in doing things: not at all 2. Feeling down, depressed, or hopeless: not at all 3. Trouble falling or staying asleep, or sleeping too much: not at all 4. Feeling tired or having little energy: not at all 5. Poor appetite or overeating: not at all 6. Feeling bad about yourself - or that you are a failure or have let yourself or your family down: not at all 7. Trouble concentrating on things, such as reading the newspaper or watching television: not at all 8. Moving or speaking so slowly that other people could have noticed. Or the opposite - being so fidgety or restless that you have been moving around a lot more than usual: not at all 9. Thoughts that you would be better off or of hurting yourself in some way: not at all Total score: 0 Depression Screening Interpretation: Negative Depression Screening Done: Yes Source: Developed by Drs. Kelvin Telles, Apple Hadley, Lawson Smith and colleagues, with an educational penelope from [employer]. Thrive Questionnaire Date Thrive assessed: 05/31/25 I am a: Patient What is your living situation today?: I have a steady place to live Within the past 12 months, did the food you bought not last and you didn't have the money to get more?: Never true Within the past 12 months, did you worry whether your food would run out before you got money to buy more?: Never true Do you have trouble paying for medicines?: No Do you have trouble getting transportation to medical appointments?: No Do you have trouble paying your heating and electricity bill?: I choose not to answer this question Do you have trouble taking care of your child, family member or friend?: I choose not to answer this question Do you have trouble with day-to-day activities such as bathing, preparing meals, shopping, managing finances, etc.?: No Are you currently unemployed and looking for a job?: No Are you interested in more education?: No Please select the resources that you would like help with: None Currently or been in a relationship where the following occur: No concerns rep orted THRIVE Score: 0 AUDIT C Alcohol Use Questionnaire (AUDIT-C) 1. How often do you have a drink containing alcohol?: Never 3. How often do you have six or more drinks on one occasion?: Never Total Score: 0 JORDANA-7 AMB Questionnaire JORDANA-7 Date JORDANA - 7 assessed: 05/31/25 Feeling nervous, anxious, or on edge: 0 = Not at all Not being able to stop or control worryin = Not at all Worrying too much about different things: 0 = Not at all Trouble relaxin = Not at all Being so restless that it is hard to sit still: 0 = Not at all Becoming easily annoyed or irritable: 0 = Not at all Feeling afraid as if something awful might happen: 0 = Not at all Total JORDANA-7 score (0-4 normal; 5-9 mild; 10-14 moderate; 15-21 severe): 0 Source: Developed by Drs. Kelvin Telles, Apple Hadley, Lawson Smith and colleagues, with an educational penelope from [employer]. Physical exam (Primary Care) Vital Signs: Last Vital Signs Temp 97.1 F 05/31/25 13:46 Pulse 70 05/31/25 13:46 BP 136/84 05/31/25 13:46 Pulse Ox 97 05/31/25 13:46 Oxygen Delivery Method Room Air 05/31/25 13:46 General: Well-appearing, alert, oriented ?3, in no acute distress. HEENT: Normocephalic, atraumatic, PERRLA, EOMI, no scleral icterus. External ears normal, tympanic membranes intact bilaterally, no erythema or effusion. Nares patent, normal mucosa pink, no discharge. No oral lesions, or pharyngeal erythema. Neck Supple. Cardiovascular: RRR, S1-S2 appreciated, no murmurs, rubs or gallops. Respiratory: Lungs clear to auscultation bilaterally, no wheezes, rales or rhonchi. Abdomen: Soft, nontender, nondistended. Normoactive bowel sounds. MSK: Normal range of motion in all extremities, no joint swelling or deformity. Skin: Intact, no rashes or lesions Neurologic: Alert and oriented X3, cranial nerves II?XII grossly intact, sensation and strength intact in bilateral lower and upper extremities. BMI result Body Mass Index 43.3 Tobacco/Smoking Status: Tobacco use Status Tobacco use date assessed 05/31/25 05/31/25 13:47 Patient Tobacco Use Status Never used Tobacco 05/31/25 13:47 e-Cigarette/Vaping Use Never Used 05/31/25 13:47 PHQ-9: PHQ-9 Score PHQ-9: Total score 0 05/31/25 13:58 Depression Screening Interpretation: Negative Thrive Assessment: Date of Thrive Assessment Date Thrive assessed 05/31/25 05/31/25 13:49 Currently or been in a relationship where the following occur: No concerns reported Results Reviewed Results Reviewed: Recent lab work from April showed a mild elevation in his AST to 40 U/L (normal <37). A liver ultrasound in July 2023 revealed hepatic steatosis. Other labs, including CBC, chemistry panel, A1c (5.5), thyroid, and vitamin D levels, PSA were within normal limits. Coding Level of Care Code Est Pt Prev Care 40-64y(05730) Diagnoses Annual physical exam Z00.00 Generalized anxiety disorder F41.1 Essential hypertension I10 Hypertension type: essential hypertension Hypercholesterolemia E78.00 Impaired glucose tolerance R73.02 LFT elevation R79.89 Assessment & Plan Assessment & Plan (1) Annual physical exam: Code(s): Z00.00 - Encounter for general adult medical examination without abnormal findings Category: Medical Plan: He reports he had a colonoscopy at age 50, which was normal with no polyps found, and was advised to repeat it in 10 years. Tdap 2017 Declines flu vaccine Due for Shingles vaccine - prescription sent (2) Generalized anxiety disorder: Code(s): F41.1 - Generalized anxiety disorder Category: Medical Plan: Controlled on escitalopram 10 mg. Today JORDANA-7 score of 0 (3) Hypertension: Code(s): I10 - Essential (primary) hypertension Category: Medical Qualifiers: Hypertension type: essential hypertension Qualified Code(s): I10 - Essential (primary) hypertension Plan: On hydrochlorothiazide 25 mg and lisinopril 40 mg (4) Hypercholesterolemia: Code(s): E78.00 - Pure hypercholesterolemia, unspecified Category: Medical Plan: On pravastatin 10 mg. Lipid panel from April 2025 significant for LDL of 100, otherwise within normal limits. Dietary modifications discussed with patient, avoid fried food, fatty food and on healthy oils, red meat, pork, full fat dairy products. Increase fiber intake and choose healthier oils like olive oil or avocado oil. (5) Impaired glucose tolerance: Code(s): R73.02 - Impaired glucose tolerance (oral) Category: Medical Plan: April 2025: Fasting glucose 111, A1c 5.5. Dietary modification emphasized as well as the importance of exercise (6) LFT elevation: Code(s): R79.89 - Other specified abnormal findings of blood chemistry Category: Medical Plan: Recent blood work shows slight elevation AST of 40. Diet and exercise Medications: New varicella-zoster gE vac,2 of 2 (Shingrix gE Antigen Component) 0.5 mL IM ONCE 1 ea 1RF Refilled lisinopril 40 mg PO DAILY 90 tabs 2RF 90 days
--- OUTSIDE RECORDS SUMMARY | 2025-05-31 19:09 | XMS_ITS | Patient Health Record ---
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 Section Notes: Nonsmoker; no sig alcohol Problems Problem Type SNOMED Code ICD Code Onset Dates Problem Status W/U Status Risk Notes Problem Screening for malignant neoplasm of colon (781448751) Encounter for screening for malignant neoplasm of colon (Z12.11) Active confirmed Problem Pre-procedure evaluation check (095080648) Pre-procedural examination (Z01.818) Active confirmed Plan Of Treatment Future Test Test Name Order Date COLONOSCOPY 04/13/2019 Insurance Providers Payer Name Payer Address Payer Phone Subscriber Number Group Number Insured Name Patient Relationship to Insured Coverage Start Date Coverage End Date [facility] [address] [place], [place] [id number] [phone] [id number] ANGELICA MAYERS Self - patient is the insured Medical (General) History Medical History History ICD Code Gout Hypertension Denies [place],DM,CVA,Lung disease,renal dise ase Anxiety Hyperlipidemia Surgical History Surgery Date(Month/Year)
== END 2025-05-31 14:23 | disposition home or self-care (01) ==
LOC: HO.HMCH 13:40
PROVIDERS: PCP Internal Medicine; Visit Provider Student in an Organized Health Care Education/Training Program
DX: Z00.00 Encounter for general adult medical examination without abnormal findings (principal); F41.1 Generalized anxiety disorder; I10 Essential (primary) hypertension; E78.00 Pure hypercholesterolemia, unspecified; R73.02 Impaired glucose tolerance (oral); R79.89 Other specified abnormal findings of blood chemistry